=== PATIENT | male | born 1950 | race Caucasian/White ===

== ENCOUNTER 2018-02-24 18:23 | Inpatient (IN) | payer MEDICARE, MEDICAID ==
[~2018-02-24] VITALS: Ht 165.1 cm; Wt 53.7 kg
[~2018-02-24 18:23] MED LIST: CLOB30CR27 TP; PANT40TA4 PO
[2018-02-24] MEDS ORDERED: LEVOFLOXACIN 750MG PREMIX 150 ML IV ONE (19:45)
[2018-02-24] MEDS ORDERED: IPRATROPIUM/ALBUTEROL 0.5-3(2.5)MG/3ML NEB HHN ONE (19:45)
[2018-02-24] MEDS ORDERED: METHYLPREDNISOLONE SOD SUCC 125 MG/2 ML VIAL IV ONE (19:45)
[2018-02-24] MEDS ORDERED: VANCOMYCIN 1 G PREMIX 200 ML IV ONE (19:45)
[2018-02-24] MEDS ORDERED: NEOMYCIN-POLYMYXIN B-HYDROCORTISONE 1% OTIC SOLN 10ML RIGHT EAR ONE (19:45)
[2018-02-24 20:54] LABS: BASOPHILS % 0.7 % (0.0-2.0); EOSINOPHILS % 2.1 % (0.0-5.0); HEMATOCRIT. 36.3 % (42.0-52.0); HEMOGLOBIN. 11.9 g/dL (14.0-18.0); LYMPHOCYTES % 23.1 % (20.0-50.0); MEAN CORPUSCULAR HEMOGLOBIN 27.6 pg (28.0-32.0); MEAN CORPUSCULAR VOLUME 84.3 fL (80.0-94.0); MEAN PLATELET VOLUME 8.4 fl (7.4-10.4); NEUTROPHILS % 60.1 % (40.0-76.0); PLATELET 289 x1000/uL (130-400); RED BLOOD CELL COUNT 4.31 mill/uL (4.7-6.1); RED CELL DISTRIBUTION WIDTH 14.9 % (11.6-14.6)
[2018-02-24 20:54] LABS: CLARITY URINE CLEAR (CLEAR); COLOR URINE YELLOW (YELLOW); KETONES URINE NEGATIVE (NEGATIVE); LEUKOCYTE ESTERASE URINE NEGATIVE (NEGATIVE); NITRITE URINE NEGATIVE (NEGATIVE); OCCULT BLOOD URINE NEGATIVE (NEGATIVE); PH URINE 5.5 (4.5-8.0); PROTEIN URINE NEGATIVE (NEGATIVE); SPECIFIC GRAVITY URINE 1.022 (1.005-1.030); UROBILINOGEN URINE 0.2 E.U./dL (0.2-1.0)
[2018-02-24 21:05] LABS: CHLORIDE 105 mEq/L (98-107)
[2018-02-24 21:14] LABS: ETHANOL BLOOD < 10 mg/dL
[2018-02-24 21:20] LABS: *AMPHETAMINES SCREEN URINE NEGATIVE (NEGATIVE); *BARBITURATES SCREEN URINE NEGATIVE (NEGATIVE); *BENZODIAZEPINES SCREEN URINE NEGATIVE (NEGATIVE); *COCAINE SCREEN URINE NEGATIVE (NEGATIVE); CANNABINOID URINE SCREEN NEGATIVE (NEGATIVE); METHADONE URINE SCREEN NEGATIVE (NEGATIVE); OPIATES URINE SCREEN NEGATIVE (NEGATIVE); PHENCYCLIDINE URINE SCREEN NEGATIVE (NEGATIVE)
[2018-02-24] MEDS ORDERED: SODIUM CHLORIDE 0.9% 1,000 ML IV ONE (22:13)
[2018-02-25] VITALS (13 sets, daily range): BP systolic 87–105; BP diastolic 52–64
[2018-02-25] MEDS ORDERED: IPRATROPIUM/ALBUTEROL 0.5-3(2.5)MG/3ML NEB HHN PRN (02:15)
[2018-02-25] MEDS: IPRATROPIUM/ALBUTEROL 0.5-3(2.5)MG/3ML NEB HHN SCH ×5 (04:15→20:24)
[2018-02-25 06:02] LABS: HEMATOCRIT. 35.4 % (42.0-52.0); HEMOGLOBIN. 11.5 g/dL (14.0-18.0); MEAN CORPUSCULAR HEMOGLOBIN 27.7 pg (28.0-32.0); MEAN PLATELET VOLUME 8.6 fl (7.4-10.4); PLATELET 282 x1000/uL (130-400); RED BLOOD CELL COUNT 4.16 mill/uL (4.7-6.1); RED CELL DISTRIBUTION WIDTH 14.5 % (11.6-14.6)
[2018-02-25] MEDS: METHYLPREDNISOLONE SOD SUCC 40 MG/ML VIAL IV SCH ×3 (06:21→21:38)
[2018-02-25] MEDS: NEOMYCIN-POLYMYXIN B-HYDROCORTISONE 1% OTIC SOLN 10ML RIGHT EAR SCH ×3 (06:22→17:28)
[2018-02-25 06:23] LABS: CHLORIDE 105 mEq/L (98-107)
[2018-02-25] MEDS: AZITHROMYCIN 500 MG in DEXT 5% WATER 250 ML IV SCH (06:23)
[2018-02-25] MEDS ORDERED: SODIUM CHL 0.45% + KCL 20MEQ/L 1,000 ML IV SCH (07:30)
[2018-02-25] MEDS: PANTOPRAZOLE 40MG DR TABLET PO SCH (07:42)
[2018-02-25] MEDS: SODIUM CHLORIDE 0.45% 1,000 ML IV SCH (08:25)
[2018-02-25] MEDS: ENOXAPARIN 40MG/0.4ML SYR SUBCUT SCH (09:25)
[2018-02-25 13:20] LABS: PLATELET ESTIMATE NORMAL
[2018-02-25] MEDS: MONTELUKAST SODIUM 10MG TABLET PO SCH (17:06)
[2018-02-26] VITALS (10 sets, daily range): BP systolic 92–122; BP diastolic 48–73
[2018-02-26] MEDS: NEOMYCIN-POLYMYXIN B-HYDROCORTISONE 1% OTIC SOLN 10ML RIGHT EAR SCH ×5 (00:40→23:42)
[2018-02-26] MEDS: IPRATROPIUM/ALBUTEROL 0.5-3(2.5)MG/3ML NEB HHN SCH ×5 (00:44→17:09)
[2018-02-26 06:06] LABS: CHLORIDE 101 mEq/L (98-107)
[2018-02-26 06:23] LABS: HEMATOCRIT. 34.3 % (42.0-52.0); HEMOGLOBIN. 11.1 g/dL (14.0-18.0); MEAN CORPUSCULAR HEMOGLOBIN 27.2 pg (28.0-32.0); MEAN CORPUSCULAR VOLUME 83.9 fL (80.0-94.0); MEAN PLATELET VOLUME 8.9 fl (7.4-10.4); PLATELET 289 x1000/uL (130-400); RED BLOOD CELL COUNT 4.09 mill/uL (4.7-6.1); RED CELL DISTRIBUTION WIDTH 14.7 % (11.6-14.6)
[2018-02-26] MEDS: METHYLPREDNISOLONE SOD SUCC 40 MG/ML VIAL IV SCH ×2 (06:23→17:53)
[2018-02-26] MEDS: AZITHROMYCIN 500 MG in DEXT 5% WATER 250 ML IV SCH (06:24)
[2018-02-26] MEDS: PANTOPRAZOLE 40MG DR TABLET PO SCH (06:34)
[2018-02-26] MEDS: ENOXAPARIN 40MG/0.4ML SYR SUBCUT SCH (09:33)
[2018-02-26 09:52] LABS: BG BASE EXCESS 2.2 mmol/L (-2.0-2.0); BG HCO3 ACT 28.6 mmol/L (22.0-26.0); BG OXYGEN SATURATION 96.1 % (92.0-98.5); BG OXYHEMOGLOBIN 95.6 % (94.0-97.0); BG PCO2 52.6 mmHg (35.0-45.0); BG PH 7.353 (7.350-7.450); BG PO2 84.1 mmHg (75.0-100.0); BG SAMPLE SITE RIGHT RADIAL; BG TOTAL HEMOGLOBIN 12.1 g/dL (12.0-18.0); BG VENT MODE NASAL CANNULA
[2018-02-26 09:53] LABS: BG CARBOXYHEMOGLOBIN 0.3 % (0.5-1.5); BG DEOXYHEMOGLOBIN 3.9 % (0.0-5.0); BG METHEMOGLOBIN 0.2 % (0.0-1.5)
[2018-02-26 10:50] LABS: PLATELET ESTIMATE NORMAL
[2018-02-26] MEDS: SODIUM CHLORIDE 0.45% 1,000 ML IV SCH (11:31)
[2018-02-26] MEDS: ACETAMINOPHEN 325MG TABLET PO PRN (14:22)
[2018-02-26] MEDS: MONTELUKAST SODIUM 10MG TABLET PO SCH (17:53)
[2018-02-26] MEDS: ZOLPIDEM TARTRATE 5MG TABLET PO PRN (22:14)
[2018-02-27] VITALS (10 sets, daily range): BP systolic 85–128; BP diastolic 56–78
[2018-02-27] MEDS: IPRATROPIUM/ALBUTEROL 0.5-3(2.5)MG/3ML NEB HHN SCH ×6 (01:40→21:06)
[2018-02-27 05:42] LABS: HEMATOCRIT. 34.9 % (42.0-52.0); HEMOGLOBIN. 11.4 g/dL (14.0-18.0); MEAN CORPUSCULAR HEMOGLOBIN 27.5 pg (28.0-32.0); MEAN CORPUSCULAR VOLUME 83.8 fL (80.0-94.0); MEAN PLATELET VOLUME 8.6 fl (7.4-10.4); PLATELET 298 x1000/uL (130-400); RED BLOOD CELL COUNT 4.16 mill/uL (4.7-6.1)
[2018-02-27 05:59] LABS: CHLORIDE 100 mEq/L (98-107)
[2018-02-27] MEDS: METHYLPREDNISOLONE SOD SUCC 40 MG/ML VIAL IV SCH ×2 (06:02→17:43)
[2018-02-27] MEDS: NEOMYCIN-POLYMYXIN B-HYDROCORTISONE 1% OTIC SOLN 10ML RIGHT EAR SCH ×4 (06:03→23:11)
[2018-02-27] MEDS: PANTOPRAZOLE 40MG DR TABLET PO SCH (06:04)
[2018-02-27] MEDS: AZITHROMYCIN 500 MG in DEXT 5% WATER 250 ML IV SCH (06:05)
[2018-02-27 09:31] LABS: BG BASE EXCESS 4.9 mmol/L (-2.0-2.0); BG CARBOXYHEMOGLOBIN 0.4 % (0.5-1.5); BG DEOXYHEMOGLOBIN 7.1 % (0.0-5.0); BG FRACTION INSPIRED OXYGEN 32; BG HCO3 ACT 32.9 mmol/L (22.0-26.0); BG METHEMOGLOBIN 0.3 % (0.0-1.5); BG OXYGEN SATURATION 92.8 % (92.0-98.5); BG OXYHEMOGLOBIN 92.2 % (94.0-97.0); BG PH 7.322 (7.350-7.450); BG SAMPLE SITE RIGHT RADIAL; BG TOTAL HEMOGLOBIN 13.1 g/dL (12.0-18.0); BG VENT MODE NASAL CANNULA
[2018-02-27] MEDS: ENOXAPARIN 40MG/0.4ML SYR SUBCUT SCH (10:02)
[2018-02-27] MEDS: SODIUM CHLORIDE 0.45% 1,000 ML IV SCH ×3 (10:03→20:38)
[2018-02-27 10:47] LABS: PLATELET ESTIMATE NORMAL
[2018-02-27] MEDS: ACETAMINOPHEN 325MG TABLET PO PRN ×2 (13:23→20:45)
[2018-02-27] MEDS: MONTELUKAST SODIUM 10MG TABLET PO SCH (17:43)
[2018-02-27] MEDS: ZOLPIDEM TARTRATE 5MG TABLET PO PRN (22:53)
[2018-02-28] VITALS (10 sets, daily range): BP systolic 96–158; BP diastolic 59–94
[2018-02-28] MEDS: IPRATROPIUM/ALBUTEROL 0.5-3(2.5)MG/3ML NEB HHN SCH ×6 (00:56→20:56)
[2018-02-28] MEDS: ACETAMINOPHEN 325MG TABLET PO PRN (04:22)
[2018-02-28] MEDS: NEOMYCIN-POLYMYXIN B-HYDROCORTISONE 1% OTIC SOLN 10ML RIGHT EAR SCH ×4 (05:16→23:24)
[2018-02-28] MEDS: AZITHROMYCIN 500 MG in DEXT 5% WATER 250 ML IV SCH (05:16)
[2018-02-28] MEDS: METHYLPREDNISOLONE SOD SUCC 40 MG/ML VIAL IV SCH ×2 (05:16→17:52)
[2018-02-28 06:12] LABS: HEMOGLOBIN. 11.5 g/dL (14.0-18.0); MEAN CORPUSCULAR VOLUME 84.3 fL (80.0-94.0); PLATELET 292 x1000/uL (130-400); RED BLOOD CELL COUNT 4.27 mill/uL (4.7-6.1)
[2018-02-28 06:40] LABS: CHLORIDE 96 mEq/L (98-107)
[2018-02-28] MEDS: PANTOPRAZOLE 40MG DR TABLET PO SCH (06:45)
[2018-02-28 08:07] LABS: BG BASE EXCESS 9.1 mmol/L (-2.0-2.0); BG CARBOXYHEMOGLOBIN 0.2 % (0.5-1.5); BG FRACTION INSPIRED OXYGEN 28; BG HCO3 ACT 35.6 mmol/L (22.0-26.0); BG METHEMOGLOBIN 0.4 % (0.0-1.5); BG OXYHEMOGLOBIN 92.4 % (94.0-97.0); BG PCO2 57.3 mmHg (35.0-45.0); BG PH 7.411 (7.350-7.450); BG PO2 65.7 mmHg (75.0-100.0); BG SAMPLE SITE RIGHT RADIAL; BG TOTAL HEMOGLOBIN 12.5 g/dL (12.0-18.0); BG VENT MODE NASAL CANNULA
[2018-02-28 08:23] LABS: PLATELET ESTIMATE NORMAL
[2018-02-28] MEDS: ENOXAPARIN 40MG/0.4ML SYR SUBCUT SCH (09:44)
[2018-02-28] MEDS: MONTELUKAST SODIUM 10MG TABLET PO SCH (17:52)
[2018-02-28] MEDS: SODIUM CHLORIDE 0.45% 1,000 ML IV SCH (17:53)
[2018-03-01] VITALS: BP 110/70
[2018-03-01] MEDS: ZOLPIDEM TARTRATE 5MG TABLET PO PRN (00:17)
[2018-03-01] MEDS: IPRATROPIUM/ALBUTEROL 0.5-3(2.5)MG/3ML NEB HHN SCH ×4 (01:28→11:49)
[2018-03-01 02:00] VITALS: BP 129/83
[2018-03-01 04:00] VITALS: BP 118/62
[2018-03-01] MEDS: METHYLPREDNISOLONE SOD SUCC 40 MG/ML VIAL IV SCH (05:09)
[2018-03-01] MEDS: AZITHROMYCIN 500 MG in DEXT 5% WATER 250 ML IV SCH (05:09)
[2018-03-01] MEDS: NEOMYCIN-POLYMYXIN B-HYDROCORTISONE 1% OTIC SOLN 10ML RIGHT EAR SCH ×2 (05:10→12:27)
[2018-03-01 06:49] LABS: HEMATOCRIT. 35.9 % (42.0-52.0); HEMOGLOBIN. 11.5 g/dL (14.0-18.0); MEAN CORPUSCULAR VOLUME 84.1 fL (80.0-94.0); MEAN PLATELET VOLUME 8.5 fl (7.4-10.4); PLATELET 289 x1000/uL (130-400); RED BLOOD CELL COUNT 4.27 mill/uL (4.7-6.1); RED CELL DISTRIBUTION WIDTH 14.9 % (11.6-14.6)
[2018-03-01 07:07] LABS: CHLORIDE 96 mEq/L (98-107)
[2018-03-01 08:00] VITALS: BP 143/83
[2018-03-01] MEDS: ENOXAPARIN 40MG/0.4ML SYR SUBCUT SCH (08:30)
[2018-03-01] MEDS: ACETAMINOPHEN 325MG TABLET PO PRN (08:31)
[2018-03-01] MEDS ORDERED: FAMOTIDINE 20MG TABLET PO SCH (09:00)
[2018-03-01 12:00] VITALS: BP 102/62
[2018-03-01 12:14] VITALS: BP 102/62
[2018-03-01 13:50] LABS: PLATELET ESTIMATE NORMAL
== END 2018-03-01 15:10 | disposition home or self-care (01) | DRG 133 ==
LOC: ER 18:23 → 5EST 22:15 → EDBEDREQTM 22:32 → EDBEDREQ 22:32 → ENRESERV 23:09
PROVIDERS: ADMIT Internal Medicine Geriatric Medicine; ATTEND Internal Medicine Geriatric Medicine
PROC: 5A09357 Assistance with Respiratory Ventilation, Less than 24 Consecutive Hours, Continuous Positive Airway Pressure (ICD-10-PCS; principal; 2018-02-28)
DX: J96.21 Acute and chronic respiratory failure with hypoxia (principal); E44.0 Moderate protein-calorie malnutrition; Z99.81 Dependence on supplemental oxygen; J44.0 Chronic obstructive pulmonary disease with (acute) lower respiratory infection; J44.1 Chronic obstructive pulmonary disease with (acute) exacerbation; R13.10 Dysphagia, unspecified; R26.2 Difficulty in walking, not elsewhere classified; D63.8 Anemia in other chronic diseases classified elsewhere; J20.9 Acute bronchitis, unspecified; J96.22 Acute and chronic respiratory failure with hypercapnia; H91.90 Unspecified hearing loss, unspecified ear; H66.92 Otitis media, unspecified, left ear; T38.0X5A Adverse effect of glucocorticoids and synthetic analogues, initial encounter; Z88.0 Allergy status to penicillin; Z79.899 Other long term (current) drug therapy; Y92.89 Other specified places as the place of occurrence of the external cause; Z68.1 Body mass index [BMI] 19.9 or less, adult
CPT/HCPCS: 36415; 36600; 71045; 80048; 80305; 82040; 82375; 82805; 83605; 83880; 84145; 84484; 93005; 93970; 94640; 96365; 96367; 96375; 97116; 97162; 97166; 99285; G0482; J0456; J1650; J1956; J2920; J2930; J3370; J7030; J7040; J7050; J7060; J7620

== ENCOUNTER 2018-03-10 12:20 | Inpatient (IN) | payer MEDICARE, MEDICAID ==
[~2018-03-10] VITALS: Ht 165.1 cm; Wt 44.5 kg
[2018-03-10] MEDS ORDERED: MAGNESIUM/ALUMINUM HYDROXIDE/SIMETHICONE 30ML UDC PO STA (12:56)
[2018-03-10] MEDS ORDERED: VISCOUS LIDOCAINE 2% 15 ML UDC PO STA (12:56)
[2018-03-10] MEDS ORDERED: IPRATROPIUM/ALBUTEROL 0.5-3(2.5)MG/3ML NEB HHN ONE (13:00)
[2018-03-10 14:28] LABS: BASOPHILS % 0.6 % (0.0-2.0); EOSINOPHILS % 1.4 % (0.0-5.0); HEMATOCRIT. 37.8 % (42.0-52.0); HEMOGLOBIN. 12.7 g/dL (14.0-18.0); LYMPHOCYTES % 17.7 % (20.0-50.0); MEAN CORPUSCULAR HEMOGLOBIN 28.2 pg (28.0-32.0); MEAN CORPUSCULAR VOLUME 83.7 fL (80.0-94.0); MEAN PLATELET VOLUME 8.2 fl (7.4-10.4); MONOCYTES % 13.2 % (2.0-8.0); NEUTROPHILS % 67.1 % (40.0-76.0); PLATELET 218 x1000/uL (130-400); RED BLOOD CELL COUNT 4.52 mill/uL (4.7-6.1); RED CELL DISTRIBUTION WIDTH 14.9 % (11.6-14.6)
[2018-03-10 14:35] LABS: CHLORIDE 102 mEq/L (98-107)
[2018-03-10 14:36] LABS: PROTHROMBIN TIME 10.3 sec (9.1-11.1)
[2018-03-10 16:12] LABS: CLARITY URINE CLEAR (CLEAR); COLOR URINE YELLOW (YELLOW); KETONES URINE NEGATIVE (NEGATIVE); LEUKOCYTE ESTERASE URINE NEGATIVE (NEGATIVE); NITRITE URINE NEGATIVE (NEGATIVE); OCCULT BLOOD URINE NEGATIVE (NEGATIVE); PROTEIN URINE NEGATIVE (NEGATIVE); SPECIFIC GRAVITY URINE 1.009 (1.005-1.030); UROBILINOGEN URINE 0.2 E.U./dL (0.2-1.0)
[2018-03-11] MEDS ORDERED: MONT10TA24 PO (15:45)
[2018-03-11] MEDS ORDERED: PROT40 PO (15:48)
[2018-03-11] MEDS ORDERED: RANI300T7 MT (15:49)
[2018-03-11] MEDS ORDERED: NEOM10DR11 EACH EAR (15:53)
[2018-03-11] MEDS ORDERED: IPRA3AMP31 NEB (16:08)
[2018-03-11 16:36] VITALS: BP 111/86
[2018-03-11 16:45] VITALS: BP 111/80
[2018-03-11] MEDS ORDERED: NA PHOS,M-B/NA PHOS,DI-BA ENEMA 118ML PR PRN (16:45)
[2018-03-11] MEDS ORDERED: ACETAMINOPHEN 650MG SUPP PR PRN (16:45)
[2018-03-11] MEDS ORDERED: CLONIDINE 0.1MG TABLET PO PRN (16:45)
[2018-03-11] MEDS ORDERED: GUAIFENESIN 200MG/10ML SUGAR FREE UDC PO PRN (16:45)
[2018-03-11] MEDS ORDERED: ACETAMINOPHEN 650MG/20.3ML UDC GT PRN (16:45)
[2018-03-11] MEDS: IPRATROPIUM/ALBUTEROL 0.5-3(2.5)MG/3ML NEB INH PRN (17:16)
[2018-03-11] MEDS: ENOXAPARIN 40MG/0.4ML SYR SUBCUT SCH (17:27)
[2018-03-11] MEDS: METHYLPREDNISOLONE SOD SUCC 125 MG/2 ML VIAL IV SCH ×2 (17:33→23:20)
[2018-03-11] MEDS: ACETAMINOPHEN 325MG TABLET PO PRN (17:33)
[2018-03-11 20:00] VITALS: BP 81/48
[2018-03-11] MEDS: IPRATROPIUM/ALBUTEROL 0.5-3(2.5)MG/3ML NEB INH SCH (20:50)
[2018-03-11 21:00] VITALS: BP 91/51
[2018-03-11] MEDS: CLOBETASOL 0.05 % CREAM 15GM TOP SCH (21:58)
[2018-03-11] MEDS: NEOMYCIN-POLYMYXIN-HYDROCORTISONE 1% OTIC SUSP 10ML EACH EAR SCH (21:58)
[2018-03-11] MEDS: DIPHENHYDRAMINE 50MG/ML VIAL IV PRN (22:09)
[2018-03-11] MEDS: SODIUM CHLORIDE 0.9% INJ 3ML FLUSH IVF SCH (22:09)
[2018-03-12] VITALS (7 sets, daily range): BP systolic 84–110; BP diastolic 51–67
[2018-03-12] MEDS: IPRATROPIUM/ALBUTEROL 0.5-3(2.5)MG/3ML NEB INH SCH ×4 (01:38→14:40)
[2018-03-12] MEDS: SODIUM CHLORIDE 0.9% 1,000 ML IV SCH ×3 (02:00→21:19)
[2018-03-12] MEDS: NEOMYCIN-POLYMYXIN-HYDROCORTISONE 1% OTIC SUSP 10ML EACH EAR SCH ×3 (05:19→17:34)
[2018-03-12] MEDS: METHYLPREDNISOLONE SOD SUCC 125 MG/2 ML VIAL IV SCH ×3 (05:19→21:18)
[2018-03-12] MEDS: SODIUM CHLORIDE 0.9% INJ 3ML FLUSH IVF SCH ×3 (05:26→21:22)
[2018-03-12] MEDS: PANTOPRAZOLE 40MG DR TABLET PO SCH (06:22)
[2018-03-12 06:24] LABS: HEMATOCRIT. 37.1 % (42.0-52.0); HEMOGLOBIN. 12.2 g/dL (14.0-18.0); MEAN CORPUSCULAR HEMOGLOBIN 27.5 pg (28.0-32.0); MEAN CORPUSCULAR VOLUME 83.5 fL (80.0-94.0); MEAN PLATELET VOLUME 8.7 fl (7.4-10.4); PLATELET 204 x1000/uL (130-400); RED BLOOD CELL COUNT 4.44 mill/uL (4.7-6.1); RED CELL DISTRIBUTION WIDTH 14.9 % (11.6-14.6)
[2018-03-12 07:09] LABS: CHLORIDE 100 mEq/L (98-107)
[2018-03-12 07:33] LABS: LDL CHOLESTEROL 102 mg/dL (5-100)
[2018-03-12 07:35] LABS: HDL CHOLESTEROL 60 mg/dL (40-59)
[2018-03-12] MEDS: MONTELUKAST SODIUM 10MG TABLET PO SCH ×2 (09:26→10:05)
[2018-03-12] MEDS: CLOBETASOL 0.05 % CREAM 15GM TOP SCH ×2 (09:26→21:19)
[2018-03-12] MEDS: HYDROCODONE/ACETAMINOPHEN 5/325MG TABLET PO PRN (09:39)
[2018-03-12 13:09] LABS: PLATELET ESTIMATE NORMAL
[2018-03-12] MEDS: ENOXAPARIN 40MG/0.4ML SYR SUBCUT SCH (17:34)
[2018-03-12] MEDS: ONDANSETRON HCL 4MG/2ML INJ IV PRN (17:38)
[2018-03-12] MEDS: MAGNESIUM/ALUMINUM HYDROXIDE/SIMETHICONE 30ML UDC PO PRN (17:39)
[2018-03-12] MEDS: DIPHENHYDRAMINE 50MG/ML VIAL IV PRN (21:18)
[2018-03-13] VITALS: BP 100/61
[2018-03-13] MEDS: NEOMYCIN-POLYMYXIN-HYDROCORTISONE 1% OTIC SUSP 10ML EACH EAR SCH ×4 (03:33→18:00)
[2018-03-13 06:00] VITALS: BP 99/53
[2018-03-13] MEDS: SODIUM CHLORIDE 0.9% INJ 3ML FLUSH IVF SCH ×3 (06:26→21:08)
[2018-03-13] MEDS: PANTOPRAZOLE 40MG DR TABLET PO SCH (06:26)
[2018-03-13] MEDS: HYDROCODONE/ACETAMINOPHEN 5/325MG TABLET PO PRN (06:45)
[2018-03-13] MEDS: MAGNESIUM/ALUMINUM HYDROXIDE/SIMETHICONE 30ML UDC PO PRN ×2 (06:45→21:09)
[2018-03-13 08:01] VITALS: BP 112/68
[2018-03-13] MEDS: METHYLPREDNISOLONE SOD SUCC 125 MG/2 ML VIAL IV SCH ×2 (08:41→21:06)
[2018-03-13] MEDS: MONTELUKAST SODIUM 10MG TABLET PO SCH (08:41)
[2018-03-13] MEDS: DOCUSATE SODIUM 100MG CAPSULE PO PRN (08:42)
[2018-03-13] MEDS: CLOBETASOL 0.05 % CREAM 15GM TOP SCH ×2 (08:42→21:06)
[2018-03-13] MEDS: SODIUM CHLORIDE 0.9% 1,000 ML IV SCH ×2 (08:42→18:00)
[2018-03-13] MEDS: ONDANSETRON HCL 4MG/2ML INJ IV PRN (09:49)
[2018-03-13 12:00] VITALS: BP 116/70
[2018-03-13] MEDS: IPRATROPIUM/ALBUTEROL 0.5-3(2.5)MG/3ML NEB INH SCH ×2 (14:04→19:47)
[2018-03-13 16:00] VITALS: BP 114/68
[2018-03-13] MEDS: ENOXAPARIN 40MG/0.4ML SYR SUBCUT SCH (17:19)
[2018-03-13 20:00] VITALS: BP 106/52
[2018-03-13] MEDS ORDERED: NA PHOS,M-B/NA PHOS,DI-BA ENEMA 118ML PR NR (20:30)
[2018-03-13] MEDS: DIPHENHYDRAMINE 50MG/ML VIAL IV PRN (21:10)
[2018-03-13] MEDS ORDERED: MAGNESIUM CITRATE 300ML SOLUTION PO NR (21:30)
[2018-03-14] VITALS: BP 114/66
[2018-03-14] MEDS: METOCLOPRAMIDE HCL 10MG/2ML VIAL IV SCH ×4 (00:51→18:21)
[2018-03-14] MEDS: NEOMYCIN-POLYMYXIN-HYDROCORTISONE 1% OTIC SUSP 10ML EACH EAR SCH ×4 (00:51→18:22)
[2018-03-14] MEDS: IPRATROPIUM/ALBUTEROL 0.5-3(2.5)MG/3ML NEB INH SCH ×4 (01:55→20:06)
[2018-03-14 04:00] VITALS: BP 120/66
[2018-03-14] MEDS: SODIUM CHLORIDE 0.9% 1,000 ML IV SCH ×2 (04:46→12:04)
[2018-03-14] MEDS: SODIUM CHLORIDE 0.9% INJ 3ML FLUSH IVF SCH ×3 (05:22→21:33)
[2018-03-14] MEDS: PANTOPRAZOLE 40MG DR TABLET PO SCH (06:37)
[2018-03-14 08:00] VITALS: BP_SYST 104
[2018-03-14] MEDS: MONTELUKAST SODIUM 10MG TABLET PO SCH (10:10)
[2018-03-14] MEDS: CLOBETASOL 0.05 % CREAM 15GM TOP SCH ×2 (10:11→21:33)
[2018-03-14] MEDS: METHYLPREDNISOLONE SOD SUCC 125 MG/2 ML VIAL IV SCH ×2 (10:11→21:33)
[2018-03-14 12:00] VITALS: BP 102/62
[2018-03-14 16:00] VITALS: BP 107/69
[2018-03-14] MEDS: ENOXAPARIN 40MG/0.4ML SYR SUBCUT SCH (18:21)
[2018-03-14 20:00] VITALS: BP 111/78
[2018-03-14] MEDS: DIPHENHYDRAMINE 50MG/ML VIAL IV PRN (22:32)
[2018-03-15] VITALS: BP 118/75
[2018-03-15] MEDS: SODIUM CHLORIDE 0.9% 1,000 ML IV SCH ×3 (00:46→21:25)
[2018-03-15] MEDS: METOCLOPRAMIDE HCL 10MG/2ML VIAL IV SCH ×4 (00:46→17:32)
[2018-03-15] MEDS: NEOMYCIN-POLYMYXIN-HYDROCORTISONE 1% OTIC SUSP 10ML EACH EAR SCH ×4 (00:46→17:33)
[2018-03-15] MEDS: IPRATROPIUM/ALBUTEROL 0.5-3(2.5)MG/3ML NEB INH SCH ×4 (01:36→20:01)
[2018-03-15 04:00] VITALS: BP 106/64
[2018-03-15] MEDS: SODIUM CHLORIDE 0.9% INJ 3ML FLUSH IVF SCH ×3 (05:37→21:31)
[2018-03-15] MEDS: PANTOPRAZOLE 40MG DR TABLET PO SCH (06:21)
[2018-03-15 08:00] VITALS: BP 135/75
[2018-03-15] MEDS: METHYLPREDNISOLONE SOD SUCC 125 MG/2 ML VIAL IV SCH ×2 (08:59→21:24)
[2018-03-15] MEDS: MONTELUKAST SODIUM 10MG TABLET PO SCH (08:59)
[2018-03-15] MEDS: CLOBETASOL 0.05 % CREAM 15GM TOP SCH ×2 (08:59→21:24)
[2018-03-15] MEDS: IPRATROPIUM/ALBUTEROL 0.5-3(2.5)MG/3ML NEB INH PRN (12:04)
[2018-03-15 12:28] VITALS: BP 109/68
[2018-03-15] MEDS: HYDROCODONE/ACETAMINOPHEN 5/325MG TABLET PO PRN (15:08)
[2018-03-15 16:29] VITALS: BP 117/76
[2018-03-15] MEDS: ENOXAPARIN 40MG/0.4ML SYR SUBCUT SCH (16:32)
[2018-03-15 20:00] VITALS: BP 132/83
[2018-03-15] MEDS: DIPHENHYDRAMINE 50MG/ML VIAL IV PRN (21:24)
[2018-03-16] VITALS: BP 123/80
[2018-03-16] MEDS: METOCLOPRAMIDE HCL 10MG/2ML VIAL IV SCH ×5 (00:09→23:23)
[2018-03-16] MEDS: NEOMYCIN-POLYMYXIN-HYDROCORTISONE 1% OTIC SUSP 10ML EACH EAR SCH ×5 (00:09→23:23)
[2018-03-16] MEDS: IPRATROPIUM/ALBUTEROL 0.5-3(2.5)MG/3ML NEB INH SCH ×4 (02:16→20:44)
[2018-03-16 04:00] VITALS: BP 144/82
[2018-03-16] MEDS: SODIUM CHLORIDE 0.9% INJ 3ML FLUSH IVF SCH ×3 (06:16→20:29)
[2018-03-16] MEDS: SODIUM CHLORIDE 0.9% 1,000 ML IV SCH (06:16)
[2018-03-16] MEDS: PANTOPRAZOLE 40MG DR TABLET PO SCH (06:16)
[2018-03-16 08:00] VITALS: BP 149/90
[2018-03-16] MEDS: MONTELUKAST SODIUM 10MG TABLET PO SCH (08:17)
[2018-03-16] MEDS: CLOBETASOL 0.05 % CREAM 15GM TOP SCH ×2 (08:17→20:28)
[2018-03-16] MEDS: METHYLPREDNISOLONE SOD SUCC 125 MG/2 ML VIAL IV SCH ×2 (08:17→20:28)
[2018-03-16 16:00] VITALS: BP 183/105
[2018-03-16] MEDS: ENOXAPARIN 40MG/0.4ML SYR SUBCUT SCH (16:12)
[2018-03-16 20:00] VITALS: BP 126/78
[2018-03-16] MEDS: ACETAMINOPHEN 325MG TABLET PO PRN (20:28)
[2018-03-16] MEDS: DIPHENHYDRAMINE 50MG/ML VIAL IV PRN (20:28)
[2018-03-17] VITALS: BP 125/83
[2018-03-17] MEDS: IPRATROPIUM/ALBUTEROL 0.5-3(2.5)MG/3ML NEB INH SCH ×4 (01:08→21:01)
[2018-03-17 04:00] VITALS: BP 135/87
[2018-03-17] MEDS: NEOMYCIN-POLYMYXIN-HYDROCORTISONE 1% OTIC SUSP 10ML EACH EAR SCH ×4 (05:41→23:27)
[2018-03-17] MEDS: SODIUM CHLORIDE 0.9% INJ 3ML FLUSH IVF SCH ×3 (05:41→21:10)
[2018-03-17] MEDS: METOCLOPRAMIDE HCL 10MG/2ML VIAL IV SCH ×4 (05:41→23:26)
[2018-03-17 08:55] VITALS: BP 150/89
[2018-03-17] MEDS: CLOBETASOL 0.05 % CREAM 15GM TOP SCH ×2 (10:05→20:56)
[2018-03-17] MEDS: MONTELUKAST SODIUM 10MG TABLET PO SCH (10:05)
[2018-03-17] MEDS: FAMOTIDINE 20MG TABLET PO SCH ×2 (10:06→20:55)
[2018-03-17] MEDS: METHYLPREDNISOLONE SOD SUCC 125 MG/2 ML VIAL IV SCH ×2 (10:07→20:55)
[2018-03-17] MEDS: ACETAMINOPHEN 325MG TABLET PO PRN ×2 (10:15→21:07)
[2018-03-17 12:00] VITALS: BP 137/76
[2018-03-17 16:00] VITALS: BP 128/85
[2018-03-17] MEDS: ENOXAPARIN 40MG/0.4ML SYR SUBCUT SCH (17:59)
[2018-03-17] MEDS: MAGNESIUM/ALUMINUM HYDROXIDE/SIMETHICONE 30ML UDC PO PRN (18:18)
[2018-03-17] MEDS: DOCUSATE SODIUM 100MG CAPSULE PO PRN (18:19)
[2018-03-17 20:00] VITALS: BP 132/89
[2018-03-17] MEDS: DIPHENHYDRAMINE 50MG/ML VIAL IV PRN (21:07)
[2018-03-18] VITALS (7 sets, daily range): BP systolic 126–140; BP diastolic 76–87
[2018-03-18] MEDS: IPRATROPIUM/ALBUTEROL 0.5-3(2.5)MG/3ML NEB INH SCH ×4 (01:24→19:54)
[2018-03-18] MEDS: NEOMYCIN-POLYMYXIN-HYDROCORTISONE 1% OTIC SUSP 10ML EACH EAR SCH ×3 (05:27→17:39)
[2018-03-18] MEDS: METOCLOPRAMIDE HCL 10MG/2ML VIAL IV SCH ×3 (05:27→17:40)
[2018-03-18] MEDS: SODIUM CHLORIDE 0.9% INJ 3ML FLUSH IVF SCH ×3 (05:28→21:34)
[2018-03-18 07:47] LABS: HEMOGLOBIN 12.5 g/dL (14.0-18.0); MEAN CORPUSCULAR HEMOGLOBIN 27.4 pg (28.0-32.0); MEAN CORPUSCULAR VOLUME 83.2 fL (80.0-94.0); PLATELET 280 x1000/uL (130-400); RED BLOOD CELL COUNT 4.57 mill/uL (4.7-6.1); RED CELL DISTRIBUTION WIDTH 15.4 % (11.6-14.6)
[2018-03-18] MEDS: ACETAMINOPHEN 325MG TABLET PO PRN (09:44)
[2018-03-18] MEDS: FAMOTIDINE 20MG TABLET PO SCH ×2 (09:44→21:31)
[2018-03-18] MEDS: METHYLPREDNISOLONE SOD SUCC 125 MG/2 ML VIAL IV SCH (09:45)
[2018-03-18] MEDS: CLOBETASOL 0.05 % CREAM 15GM TOP SCH ×2 (09:45→21:34)
[2018-03-18] MEDS: MONTELUKAST SODIUM 10MG TABLET PO SCH (09:45)
[2018-03-18] MEDS: DOCUSATE SODIUM 100MG CAPSULE PO PRN ×2 (09:45→17:44)
[2018-03-18] MEDS: PREDNISONE 20MG TABLET PO SCH (12:41)
[2018-03-18] MEDS: ENOXAPARIN 40MG/0.4ML SYR SUBCUT SCH (17:40)
[2018-03-18] MEDS: DIPHENHYDRAMINE 50MG/ML VIAL IV PRN (21:34)
[2018-03-19] MEDS: IPRATROPIUM/ALBUTEROL 0.5-3(2.5)MG/3ML NEB INH SCH ×4 (01:55→20:40)
[2018-03-19 04:00] VITALS: BP 138/89
[2018-03-19] MEDS: METOCLOPRAMIDE HCL 10MG/2ML VIAL IV SCH ×4 (05:50→17:45)
[2018-03-19 08:00] VITALS: BP 109/70
[2018-03-19] MEDS: MONTELUKAST SODIUM 10MG TABLET PO SCH (08:52)
[2018-03-19] MEDS: CLOBETASOL 0.05 % CREAM 15GM TOP SCH ×2 (08:52→21:33)
[2018-03-19] MEDS: FAMOTIDINE 20MG TABLET PO SCH ×2 (08:52→21:33)
[2018-03-19] MEDS: PREDNISONE 20MG TABLET PO SCH (08:52)
[2018-03-19] MEDS: ACETAMINOPHEN 325MG TABLET PO PRN (12:33)
[2018-03-19] MEDS: ENOXAPARIN 40MG/0.4ML SYR SUBCUT SCH (17:45)
[2018-03-19 20:00] VITALS: BP 115/75
[2018-03-19] MEDS: DIPHENHYDRAMINE 50MG/ML VIAL IV PRN (21:32)
[2018-03-19] MEDS: SODIUM CHLORIDE 0.9% INJ 3ML FLUSH IVF SCH (21:33)
[2018-03-20] VITALS (7 sets, daily range): BP systolic 99–123; BP diastolic 65–80
[2018-03-20] MEDS: METOCLOPRAMIDE HCL 10MG/2ML VIAL IV SCH ×5 (00:22→23:12)
[2018-03-20] MEDS: IPRATROPIUM/ALBUTEROL 0.5-3(2.5)MG/3ML NEB INH SCH ×4 (01:00→21:26)
[2018-03-20] MEDS: FAMOTIDINE 20MG TABLET PO SCH ×2 (08:33→21:34)
[2018-03-20] MEDS: MONTELUKAST SODIUM 10MG TABLET PO SCH (08:33)
[2018-03-20] MEDS: CLOBETASOL 0.05 % CREAM 15GM TOP SCH ×2 (08:34→21:34)
[2018-03-20] MEDS: PREDNISONE 20MG TABLET PO SCH (08:34)
[2018-03-20] MEDS: ACETAMINOPHEN 325MG TABLET PO PRN (10:02)
[2018-03-20] MEDS: ENOXAPARIN 40MG/0.4ML SYR SUBCUT SCH (17:22)
[2018-03-20] MEDS: SODIUM CHLORIDE 0.9% INJ 3ML FLUSH IVF SCH ×2 (17:23→21:35)
[2018-03-20] MEDS: DIPHENHYDRAMINE 50MG/ML VIAL IV PRN (21:34)
[2018-03-20] MEDS: DOCUSATE SODIUM 100MG CAPSULE PO PRN (21:34)
[2018-03-21] MEDS: IPRATROPIUM/ALBUTEROL 0.5-3(2.5)MG/3ML NEB INH SCH ×4 (01:04→21:01)
[2018-03-21 04:00] VITALS: BP 110/78
[2018-03-21] MEDS: METOCLOPRAMIDE HCL 10MG/2ML VIAL IV SCH ×3 (05:41→17:44)
[2018-03-21] MEDS: SODIUM CHLORIDE 0.9% INJ 3ML FLUSH IVF SCH ×2 (05:41→21:40)
[2018-03-21] MEDS: ACETAMINOPHEN 325MG TABLET PO PRN ×2 (09:46→21:18)
[2018-03-21] MEDS: MONTELUKAST SODIUM 10MG TABLET PO SCH (09:47)
[2018-03-21] MEDS: PREDNISONE 20MG TABLET PO SCH (09:47)
[2018-03-21] MEDS: FAMOTIDINE 20MG TABLET PO SCH ×2 (09:47→21:18)
[2018-03-21] MEDS: CLOBETASOL 0.05 % CREAM 15GM TOP SCH ×2 (09:49→21:00)
[2018-03-21 12:00] VITALS: BP 114/97
[2018-03-21 16:00] VITALS: BP 128/84
[2018-03-21] MEDS: DOCUSATE SODIUM 100MG CAPSULE PO PRN (17:44)
[2018-03-21] MEDS: ENOXAPARIN 40MG/0.4ML SYR SUBCUT SCH (17:44)
[2018-03-21 20:00] VITALS: BP 122/72
[2018-03-21] MEDS: DIPHENHYDRAMINE 50MG/ML VIAL IV PRN (21:22)
[2018-03-22] VITALS: BP 112/69
[2018-03-22] MEDS: IPRATROPIUM/ALBUTEROL 0.5-3(2.5)MG/3ML NEB INH SCH ×3 (02:15→21:30)
[2018-03-22 04:00] VITALS: BP 112/59
[2018-03-22] MEDS: METOCLOPRAMIDE HCL 10MG/2ML VIAL IV SCH ×4 (06:08→17:11)
[2018-03-22] MEDS: SODIUM CHLORIDE 0.9% INJ 3ML FLUSH IVF SCH ×3 (06:08→21:24)
[2018-03-22 08:00] VITALS: BP 121/71
[2018-03-22] MEDS: CLOBETASOL 0.05 % CREAM 15GM TOP SCH ×2 (09:00→21:00)
[2018-03-22] MEDS: MONTELUKAST SODIUM 10MG TABLET PO SCH (09:02)
[2018-03-22] MEDS: PREDNISONE 20MG TABLET PO SCH (09:02)
[2018-03-22] MEDS: FAMOTIDINE 20MG TABLET PO SCH ×2 (09:02→21:24)
[2018-03-22] MEDS: DOCUSATE SODIUM 100MG CAPSULE PO PRN (10:58)
[2018-03-22] MEDS: ACETAMINOPHEN 325MG TABLET PO PRN ×3 (10:58→21:24)
[2018-03-22 12:00] VITALS: BP 106/64
[2018-03-22 16:00] VITALS: BP 119/74
[2018-03-22] MEDS: ENOXAPARIN 40MG/0.4ML SYR SUBCUT SCH (17:11)
[2018-03-22 20:00] VITALS: BP 110/76
[2018-03-22] MEDS: DIPHENHYDRAMINE 50MG/ML VIAL IV PRN (21:24)
[2018-03-23] VITALS: BP 127/83
[2018-03-23] MEDS: IPRATROPIUM/ALBUTEROL 0.5-3(2.5)MG/3ML NEB INH SCH ×3 (02:09→20:16)
[2018-03-23 04:00] VITALS: BP 111/63
[2018-03-23] MEDS: METOCLOPRAMIDE HCL 10MG/2ML VIAL IV SCH ×5 (05:08→23:25)
[2018-03-23] MEDS: SODIUM CHLORIDE 0.9% INJ 3ML FLUSH IVF SCH ×3 (05:58→20:03)
[2018-03-23 08:00] VITALS: BP 135/86
[2018-03-23] MEDS: MONTELUKAST SODIUM 10MG TABLET PO SCH (08:37)
[2018-03-23] MEDS: FAMOTIDINE 20MG TABLET PO SCH ×2 (08:37→20:03)
[2018-03-23] MEDS: PREDNISONE 20MG TABLET PO SCH (08:37)
[2018-03-23] MEDS: CLOBETASOL 0.05 % CREAM 15GM TOP SCH ×2 (09:00→20:03)
[2018-03-23] MEDS: ACETAMINOPHEN 325MG TABLET PO PRN ×2 (09:13→17:09)
[2018-03-23] MEDS: DOCUSATE SODIUM 100MG CAPSULE PO PRN ×2 (11:30→20:03)
[2018-03-23] MEDS: MAGNESIUM/ALUMINUM HYDROXIDE/SIMETHICONE 30ML UDC PO PRN (11:30)
[2018-03-23 12:00] VITALS: BP 105/77
[2018-03-23 16:00] VITALS: BP 111/81
[2018-03-23] MEDS: ENOXAPARIN 40MG/0.4ML SYR SUBCUT SCH (17:01)
[2018-03-23 20:00] VITALS: BP 112/74
[2018-03-23] MEDS: DIPHENHYDRAMINE 50MG/ML VIAL IV PRN (20:03)
[2018-03-24] VITALS: BP 108/69
[2018-03-24] MEDS: IPRATROPIUM/ALBUTEROL 0.5-3(2.5)MG/3ML NEB INH SCH ×4 (01:54→21:32)
[2018-03-24 04:20] VITALS: BP 125/74
[2018-03-24] MEDS: SODIUM CHLORIDE 0.9% INJ 3ML FLUSH IVF SCH ×3 (05:05→20:31)
[2018-03-24] MEDS: METOCLOPRAMIDE HCL 10MG/2ML VIAL IV SCH ×4 (05:05→23:35)
[2018-03-24 08:00] VITALS: BP 148/84
[2018-03-24] MEDS: MONTELUKAST SODIUM 10MG TABLET PO SCH (08:29)
[2018-03-24] MEDS: FAMOTIDINE 20MG TABLET PO SCH (08:30)
[2018-03-24] MEDS: ACETAMINOPHEN 325MG TABLET PO PRN ×2 (08:30→17:13)
[2018-03-24] MEDS: PREDNISONE 20MG TABLET PO SCH (08:31)
[2018-03-24] MEDS: CLOBETASOL 0.05 % CREAM 15GM TOP SCH ×2 (08:33→20:31)
[2018-03-24] MEDS: DOCUSATE SODIUM 100MG CAPSULE PO PRN (10:32)
[2018-03-24] MEDS: MAGNESIUM/ALUMINUM HYDROXIDE/SIMETHICONE 30ML UDC PO PRN (10:32)
[2018-03-24 12:00] VITALS: BP 119/73
[2018-03-24] MEDS ORDERED: BISACODYL 10MG SUPP PR PRN (15:15)
[2018-03-24 16:00] VITALS: BP 100/64
[2018-03-24] MEDS ORDERED: MAGNESIUM CITRATE 300ML SOLUTION PO NR (16:30)
[2018-03-24] MEDS: ENOXAPARIN 30MG/0.3ML SYR SUBCUT SCH (17:13)
[2018-03-24 20:00] VITALS: BP 105/69
[2018-03-24] MEDS: BISACODYL 5MG TABLET PO PRN (20:31)
[2018-03-24] MEDS: DIPHENHYDRAMINE 50MG/ML VIAL IV PRN (20:31)
[2018-03-25 00:03] VITALS: BP 110/71
[2018-03-25] MEDS: IPRATROPIUM/ALBUTEROL 0.5-3(2.5)MG/3ML NEB INH SCH ×3 (03:03→21:34)
[2018-03-25 04:00] VITALS: BP 125/84
[2018-03-25] MEDS: ACETAMINOPHEN 325MG TABLET PO PRN ×3 (05:37→17:16)
[2018-03-25] MEDS: SODIUM CHLORIDE 0.9% INJ 3ML FLUSH IVF SCH ×3 (05:38→20:29)
[2018-03-25] MEDS: METOCLOPRAMIDE HCL 10MG/2ML VIAL IV SCH ×4 (05:38→23:42)
[2018-03-25 08:00] VITALS: BP 120/70
[2018-03-25] MEDS: FAMOTIDINE 20MG TABLET PO SCH (09:45)
[2018-03-25] MEDS: PREDNISONE 20MG TABLET PO SCH (09:45)
[2018-03-25] MEDS: DOCUSATE SODIUM 100MG CAPSULE PO PRN (09:45)
[2018-03-25] MEDS: MONTELUKAST SODIUM 10MG TABLET PO SCH (09:45)
[2018-03-25] MEDS: MAGNESIUM/ALUMINUM HYDROXIDE/SIMETHICONE 30ML UDC PO PRN (10:00)
[2018-03-25] MEDS: CLOBETASOL 0.05 % CREAM 15GM TOP SCH ×2 (10:04→20:28)
[2018-03-25 12:00] VITALS: BP 122/70
[2018-03-25 16:00] VITALS: BP 122/70
[2018-03-25] MEDS: ENOXAPARIN 30MG/0.3ML SYR SUBCUT SCH (16:30)
[2018-03-25 20:00] VITALS: BP 116/68
[2018-03-25] MEDS: DIPHENHYDRAMINE 50MG/ML VIAL IV PRN (22:44)
[2018-03-26] VITALS (7 sets, daily range): BP systolic 108–162; BP diastolic 60–86
[2018-03-26] MEDS: IPRATROPIUM/ALBUTEROL 0.5-3(2.5)MG/3ML NEB INH SCH ×3 (01:25→21:15)
[2018-03-26] MEDS: METOCLOPRAMIDE HCL 10MG/2ML VIAL IV SCH ×4 (05:20→23:19)
[2018-03-26] MEDS: ACETAMINOPHEN 325MG TABLET PO PRN ×2 (05:24→16:25)
[2018-03-26] MEDS: SODIUM CHLORIDE 0.9% INJ 3ML FLUSH IVF SCH ×3 (05:25→20:17)
[2018-03-26] MEDS: FAMOTIDINE 20MG TABLET PO SCH (07:46)
[2018-03-26] MEDS: PREDNISONE 20MG TABLET PO SCH (07:47)
[2018-03-26] MEDS: MONTELUKAST SODIUM 10MG TABLET PO SCH (07:47)
[2018-03-26] MEDS: CLOBETASOL 0.05 % CREAM 15GM TOP SCH ×2 (08:51→20:18)
[2018-03-26] MEDS: ONDANSETRON HCL 4MG/2ML INJ IV PRN (16:29)
[2018-03-26] MEDS: ENOXAPARIN 30MG/0.3ML SYR SUBCUT SCH (17:38)
[2018-03-26] MEDS: MAGNESIUM/ALUMINUM HYDROXIDE/SIMETHICONE 30ML UDC PO PRN (20:24)
[2018-03-26] MEDS: DOCUSATE SODIUM 100MG CAPSULE PO PRN (20:24)
[2018-03-26] MEDS: DIPHENHYDRAMINE 50MG/ML VIAL IV PRN (23:19)
[2018-03-27] VITALS (7 sets, daily range): BP systolic 97–125; BP diastolic 54–77
[2018-03-27] MEDS: IPRATROPIUM/ALBUTEROL 0.5-3(2.5)MG/3ML NEB INH SCH ×4 (01:35→21:06)
[2018-03-27] MEDS: IPRATROPIUM/ALBUTEROL 0.5-3(2.5)MG/3ML NEB INH PRN (05:11)
[2018-03-27] MEDS: METOCLOPRAMIDE HCL 10MG/2ML VIAL IV SCH ×3 (05:28→17:05)
[2018-03-27] MEDS: SODIUM CHLORIDE 0.9% INJ 3ML FLUSH IVF SCH ×3 (05:30→21:38)
[2018-03-27] MEDS: PREDNISONE 20MG TABLET PO SCH (08:16)
[2018-03-27] MEDS: MONTELUKAST SODIUM 10MG TABLET PO SCH (08:16)
[2018-03-27] MEDS: FAMOTIDINE 20MG TABLET PO SCH (08:16)
[2018-03-27] MEDS: DOCUSATE SODIUM 100MG CAPSULE PO PRN (08:16)
[2018-03-27] MEDS: CLOBETASOL 0.05 % CREAM 15GM TOP SCH ×2 (08:17→21:44)
[2018-03-27] MEDS: ACETAMINOPHEN 325MG TABLET PO PRN (17:05)
[2018-03-27] MEDS: ENOXAPARIN 30MG/0.3ML SYR SUBCUT SCH (17:06)
[2018-03-27] MEDS: MAGNESIUM/ALUMINUM HYDROXIDE/SIMETHICONE 30ML UDC PO PRN (21:37)
[2018-03-27] MEDS: DIPHENHYDRAMINE 50MG/ML VIAL IV PRN (21:38)
[2018-03-28] VITALS: BP 110/65
[2018-03-28] MEDS: METOCLOPRAMIDE HCL 10MG/2ML VIAL IV SCH ×5 (00:05→23:46)
[2018-03-28] MEDS: IPRATROPIUM/ALBUTEROL 0.5-3(2.5)MG/3ML NEB INH SCH ×4 (01:18→21:32)
[2018-03-28 04:00] VITALS: BP 106/62
[2018-03-28] MEDS: SODIUM CHLORIDE 0.9% INJ 3ML FLUSH IVF SCH ×3 (05:55→21:04)
[2018-03-28 07:24] LABS: HEMATOCRIT. 35.5 % (42.0-52.0); HEMOGLOBIN. 11.5 g/dL (14.0-18.0); MEAN CORPUSCULAR HEMOGLOBIN 27.6 pg (28.0-32.0); MEAN CORPUSCULAR VOLUME 84.8 fL (80.0-94.0); MEAN PLATELET VOLUME 8.1 fl (7.4-10.4); PLATELET 269 x1000/uL (130-400); RED BLOOD CELL COUNT 4.18 mill/uL (4.7-6.1); RED CELL DISTRIBUTION WIDTH 16.7 % (11.6-14.6)
[2018-03-28 08:00] VITALS: BP 143/83
[2018-03-28] MEDS: PREDNISONE 20MG TABLET PO SCH (08:26)
[2018-03-28] MEDS: MONTELUKAST SODIUM 10MG TABLET PO SCH (08:27)
[2018-03-28] MEDS: CLOBETASOL 0.05 % CREAM 15GM TOP SCH ×2 (08:28→21:04)
[2018-03-28] MEDS: FAMOTIDINE 20MG TABLET PO SCH (08:28)
[2018-03-28 08:34] LABS: CHLORIDE 94 mEq/L (98-107)
[2018-03-28] MEDS: ACETAMINOPHEN 325MG TABLET PO PRN (10:07)
[2018-03-28 12:11] VITALS: BP 111/62
[2018-03-28 13:52] LABS: PLATELET ESTIMATE NORMAL
[2018-03-28 16:00] VITALS: BP 114/73
[2018-03-28] MEDS: ENOXAPARIN 30MG/0.3ML SYR SUBCUT SCH (17:38)
[2018-03-28] MEDS: BISACODYL 5MG TABLET PO PRN (17:38)
[2018-03-28 20:00] VITALS: BP 114/62
[2018-03-28] MEDS: DIPHENHYDRAMINE 50MG/ML VIAL IV PRN (21:03)
[2018-03-28] MEDS ORDERED: BISACODYL 10MG SUPP PR PRN (21:15)
[2018-03-28] MEDS ORDERED: BISACODYL 5MG TABLET PO PRN (21:15)
[2018-03-28] MEDS: DOCUSATE SODIUM 100MG CAPSULE PO SCH (21:44)
[2018-03-28] MEDS ORDERED: MAGNESIUM CITRATE 300ML SOLUTION PO NR (23:00)
[2018-03-29] VITALS: BP 117/71
[2018-03-29] MEDS: IPRATROPIUM/ALBUTEROL 0.5-3(2.5)MG/3ML NEB INH SCH ×3 (01:23→15:04)
[2018-03-29 04:00] VITALS: BP 110/74
[2018-03-29] MEDS: ACETAMINOPHEN 325MG TABLET PO PRN ×2 (04:23→10:51)
[2018-03-29] MEDS: METOCLOPRAMIDE HCL 10MG/2ML VIAL IV SCH ×2 (06:10→13:03)
[2018-03-29] MEDS: SODIUM CHLORIDE 0.9% INJ 3ML FLUSH IVF SCH ×2 (06:10→14:00)
[2018-03-29] MEDS ORDERED: PREDNISONE 20MG TABLET PO SCH (09:00)
[2018-03-29] MEDS: FAMOTIDINE 20MG TABLET PO SCH (09:28)
[2018-03-29] MEDS: MONTELUKAST SODIUM 10MG TABLET PO SCH (09:28)
[2018-03-29] MEDS: DOCUSATE SODIUM 100MG CAPSULE PO SCH (09:28)
[2018-03-29] MEDS: CLOBETASOL 0.05 % CREAM 15GM TOP SCH (09:32)
[2018-03-29] MEDS: MAGNESIUM/ALUMINUM HYDROXIDE/SIMETHICONE 30ML UDC PO PRN (10:51)
[2018-03-29 13:15] VITALS: BP 122/77
== END 2018-03-29 14:50 | DRG 133 ==
LOC: ER 12:20 → 8WST 03-11 11:57 → EDBEDREQ 03-11 12:04 → ENRESERV 03-11 12:28
PROVIDERS: ADMIT Family Medicine; ATTEND Family Medicine
DX: J96.20 Acute and chronic respiratory failure, unspecified whether with hypoxia or hypercapnia (principal); Z99.81 Dependence on supplemental oxygen; E44.1 Mild protein-calorie malnutrition; J44.1 Chronic obstructive pulmonary disease with (acute) exacerbation; D63.8 Anemia in other chronic diseases classified elsewhere; K59.00 Constipation, unspecified; K21.9 Gastro-esophageal reflux disease without esophagitis; Z88.0 Allergy status to penicillin; Z87.730 Personal history of (corrected) cleft lip and palate; Z87.891 Personal history of nicotine dependence; Z68.1 Body mass index [BMI] 19.9 or less, adult; Z79.899 Other long term (current) drug therapy
CPT/HCPCS: 36415; 71045; 74018; 80061; 83880; 84484; 85027; 93005; 94640; 99285; C1893; J1200; J1650; J2405; J2765; J2930; J7030; J7512; J7620